=== PATIENT | female | born 1950 | race Caucasian/White ===

== ENCOUNTER 2024-11-01 06:10 | Day surgery (SDC) | payer MEDICARE, BC ==
[~2024-11-01 06:10] MED LIST: DEXTROSE 50% IRR SCH; ENOXAPARIN IRR SCH; FLUOROURACIL IRR SCH; [UNRECOGNIZED DRUG - OTHER] IRR SCH
[2024-11-01] MEDS ORDERED: Cyclopentolate 1% Opth Drop 2 ML BOT ONE (06:57)
[2024-11-01] MEDS ORDERED: PROPOFOL 20 ML ONE (07:19)
[2024-11-01] MEDS ORDERED: Lidocaine 1% PF 5 ML VIAL ONE ×2 (07:20→08:20)
[2024-11-01] MEDS ORDERED: Maxitrol 0.1% Opth Oint 3.5 GM TUBE ONE (08:20)
[2024-11-01] MEDS ORDERED: Dextrose 50% Abboject 50 ML SYRINGE ONE (08:20)
[2024-11-01] MEDS ORDERED: Lidocaine 4% PF 5 ML AMP ONE (08:20)
[2024-11-01] MEDS ORDERED: Enoxaparin 30 MG (0.3 mL) SYRINGE ONE (08:20)
[2024-11-01] MEDS ORDERED: CEFAZOLIN 1 GM VIAL ONE (08:20)
== END 2024-11-01 09:46 | disposition home or self-care (01) ==
LOC: SDC 06:10
PROVIDERS: ATTEND Ophthalmology Retina Specialist
PROC: 08T43ZZ Resection of Right Vitreous, Percutaneous Approach (ICD-10-PCS; principal; 2024-11-01)
PROC: 08NE3ZZ Release Right Retina, Percutaneous Approach (ICD-10-PCS; 2024-11-01)
DX: H35.371 Puckering of macula, right eye (principal); I10 Essential (primary) hypertension; E11.9 Type 2 diabetes mellitus without complications; Z79.84 Long term (current) use of oral hypoglycemic drugs
CPT/HCPCS: 67041; J0690; J1650; J2250; J2704; J3490; J7999; J9190